=== PATIENT | female | born 1965 | race Caucasian/White ===

== ENCOUNTER 2022-10-24 09:43 | Outpatient (CLI) | payer BC ==
[2022-10-24 10:33] LABS: #Basophils 0.1 10x3/uL (0.0-0.2); #Monocytes 0.6 10x3/uL (0.0-1.1); #Neutrophils 5.2 10x3/uL (1.5-8.4); %Basophils 0.9 % (0.0-2.0); %Eosinophils 0.2 % (0.0-6.0); %Lymphocytes 26.7 % (18.0-47.0); %Neutrophils 64.8 % (40.0-75.0); Hemoglobin 13.3 g/dL (12.0-15.5); Mean Corpuscular HGB CONC 34.7 g/dL (32.0-36.0); Mean Corpuscular Hemoglobin 30.8 pg (27.0-33.0); Mean Corpuscular Volume 88.7 fl (81.6-98.3); Mean Platelet Volume 9.7 fl (7.4-10.4); Platelet Count 246 10x3/uL (150-450); Red Blood Cell (RBC) Count 4.32 10x6/uL (3.90-5.03)
[2022-10-24 10:40] LABS: INR-International Normal Ratio 0.9; Prothrombin Time 10.3 sec (9.5-12.1)
[2022-10-24 10:43] LABS: Anion Gap 12 mmol/L (10-20); BUN (Urea Nitrogen) 14 mg/dL (9.8-20.1); Calc. Creatinine Clearance 0 mL/min (70-130); Calcium 9.3 mg/dL (7.8-10.44); Carbon Dioxide 27 mmol/L (22-29); Chloride 105 mmol/L (98-107); Estimated GFR 90; Glucose 97 mg/dL (70-105); Potassium 3.7 mmol/L (3.5-5.1); Sodium 140 mmol/L (136-145)
== END 2022-10-24 09:44 | disposition home or self-care (01) ==
LOC: LABBT 09:43
PROVIDERS: ATTEND Orthopaedic Surgery
DX: Z01.818 Encounter for other preprocedural examination (principal); M16.12 Unilateral primary osteoarthritis, left hip
CPT/HCPCS: 80048; 85025; 85610; 87081; 93005; 93010

== ENCOUNTER 2022-10-25 05:48 | Inpatient (IN) | payer BC ==
[2022-10-25] MEDS ORDERED: Midazolam HCl 2 mg/2 ml Vial ONE ×2 (06:22→06:46)
[2022-10-25] MEDS ORDERED: Fentanyl 250 MCG/5 ML VIAL ONE (06:22)
[2022-10-25] MEDS ORDERED: Propofol 500 MG/50 ML VIAL ONE (06:31)
[2022-10-25] MEDS ORDERED: Vancomycin 1 GM/200 ML (FROZEN) BAG ONE (06:33)
[2022-10-25] MEDS ORDERED: Sodium Chloride 0.9% 0 ML ONE (06:33)
[2022-10-25] MEDS ORDERED: Tranexamic Acid 1,000 MG/10 ML VIAL ONE (06:33)
[2022-10-25] MEDS ORDERED: CEFAZOLIN 2 GM VIAL ONE ×2 (06:33→07:12)
[2022-10-25] MEDS ORDERED: Lidocaine 1% MPF 2 ML VIAL ONE (06:34)
[2022-10-25] MEDS ORDERED: Bupivacaine PF 0.5% 30 ML VIAL ONE ×2 (06:35→06:46)
[2022-10-25] MEDS ORDERED: Sodium Chloride 0.9% 100 ML ONE ×2 (06:42→07:12)
[2022-10-25] MEDS ORDERED: Fentanyl 100 MCG/2 ML VIAL ONE (06:46)
[2022-10-25] MEDS ORDERED: Promethazine HCl 25 MG/ML VIAL IM PRN ×2 (07:03→09:02)
[2022-10-25] MEDS ORDERED: Zolpidem Tartrate 5 MG TAB PO PRN (07:03)
[2022-10-25] MEDS ORDERED: diphenhydrAMINE 25 MG CAP PO PRN (07:03)
[2022-10-25] MEDS ORDERED: Fentanyl 100 MCG/2 ML VIAL SLOW IVP PRN ×2 (07:03)
[2022-10-25] MEDS ORDERED: Ondansetron PF 4 MG/2 ML Vial ONE ×2 (07:04→08:28)
[2022-10-25] MEDS ORDERED: PHENYLEPHRINE-NS 100 MCG/ML 10 ML SYRINGE ONE (07:04)
[2022-10-25] MEDS ORDERED: Non-Formulary Item 1 EACH (Risedronate Sodium [Actonel] 150 MG Tablet) PO SCH (07:15)
[2022-10-25 07:47] LABS: SARS-CoV-2 NAA Rapid Test Not Detected (NotDetected)
[2022-10-25] MEDS: Sodium Chloride 0.9% 1,000 ML IV SCH ×2 (09:00→20:16)
[2022-10-25] MEDS ORDERED: Non-Formulary Item 1 EACH (Mv-Mn/Folic Ac/Calcium/Vit K1 [Women's 50 Plus Multivit Tab] 1 PO SCH (09:00)
[2022-10-25] MEDS ORDERED: Ketorolac Tromethamine 30 MG/ML VIAL IVP PRN (09:02)
[2022-10-25] MEDS ORDERED: HYDROmorphone 2 MG/ML VIAL SLOW IVP PRN (09:02)
[2022-10-25] MEDS ORDERED: Promethazine HCl 25 MG/ML VIAL IVPB PRN (09:02)
[2022-10-25] MEDS ORDERED: Ondansetron HCl/PF 4 MG/2 ML Vial IVP PRN (09:02)
[2022-10-25] MEDS: Cholecalciferol 1,000 UNITS (25 MCG) TAB PO SCH (11:24)
[2022-10-25] MEDS: Zinc Sulfate 220 MG CAP PO SCH (11:24)
[2022-10-25] MEDS: Aspirin 81 mg Enteric Coated Tablet PO SCH ×2 (11:24→20:25)
[2022-10-25] MEDS: Estradiol 1 MG TAB PO SCH (11:24)
[2022-10-25] MEDS ORDERED: FENTANYL 50 MCG/ML 1 ML VIAL SLOW IVP PRN (11:45)
[2022-10-25] MEDS: FENTANYL 50 MCG/ML 1 ML VIAL SLOW IVP PRN ×3 (11:45→16:01)
[2022-10-25 12:06] VITALS: BMI 21.4
[2022-10-25] MEDS: Ondansetron PF 4 MG/2 ML Vial IVP PRN (12:53)
[2022-10-25] MEDS: HYDROcodone/Acetaminophen 10/325 mg Tablet PO PRN ×3 (13:19→22:29)
[2022-10-25] MEDS: CEFAZOLIN 2 GM in Sodium Chloride 0.9% 100 ML IVPB SCH ×2 (16:01→22:28)
[2022-10-25] MEDS: Acetaminophen 325 MG TAB PO PRN (20:29)
[2022-10-26] MEDS: Sodium Chloride 0.9% 1,000 ML IV SCH ×3 (02:07→23:15)
[2022-10-26] MEDS: HYDROcodone/Acetaminophen 10/325 mg Tablet PO PRN ×2 (02:27→06:34)
[2022-10-26 06:38] LABS: Hemoglobin 11.1 g/dL (12.0-16.0); Mean Corpuscular HGB CONC 34.4 g/dL (32.0-36.0); Mean Corpuscular Volume 93.3 fl (78.0-98.0); Mean Platelet Volume 7.8 fL (7.4-10.4); Platelet Count 176 10x3/uL (130-400); RBC Distribution Width 11.2 % (11.5-14.5); Red Blood Cell (RBC) Count 3.48 mill/uL (4.20-5.40); White Blood Cell (WBC) Count 10.6 10x3/uL (4.8-10.8)
[2022-10-26] MEDS: Zinc Sulfate 220 MG CAP PO SCH (08:26)
[2022-10-26] MEDS: Acetaminophen 325 MG TAB PO PRN ×3 (08:27→21:09)
[2022-10-26] MEDS: Cholecalciferol 1,000 UNITS (25 MCG) TAB PO SCH (08:27)
[2022-10-26] MEDS: Aspirin 81 mg Enteric Coated Tablet PO SCH ×2 (08:27→21:08)
[2022-10-26] MEDS: Multivitamin W/ Minerals 1 TAB PO SCH (08:27)
[2022-10-26] MEDS: Ferrous Gluconate 324 MG TAB PO SCH ×2 (08:27→17:36)
[2022-10-26] MEDS: Estradiol 1 MG TAB PO SCH (08:27)
[2022-10-26] MEDS: Senokot S 8.6-50 MG TAB PO SCH ×2 (08:27→21:09)
[2022-10-26] MEDS: Ondansetron PF 4 MG/2 ML Vial IVP PRN ×3 (08:31→20:03)
[2022-10-27] MEDS: Sodium Chloride 0.9% 1,000 ML IV SCH ×2 (07:16→16:01)
[2022-10-27] MEDS: Ondansetron PF 4 MG/2 ML Vial IVP PRN (08:20)
[2022-10-27] MEDS: Senokot S 8.6-50 MG TAB PO SCH ×2 (08:32→20:11)
[2022-10-27] MEDS: Multivitamin W/ Minerals 1 TAB PO SCH (08:32)
[2022-10-27] MEDS: Aspirin 81 mg Enteric Coated Tablet PO SCH ×2 (08:33→20:11)
[2022-10-27] MEDS: Estradiol 1 MG TAB PO SCH (08:33)
[2022-10-27] MEDS: Cholecalciferol 1,000 UNITS (25 MCG) TAB PO SCH (08:33)
[2022-10-27] MEDS: Zinc Sulfate 220 MG CAP PO SCH (08:33)
[2022-10-27] MEDS: Ferrous Gluconate 324 MG TAB PO SCH ×2 (08:33→16:21)
[2022-10-27] MEDS: traMADol HCl 50 MG TAB PO PRN ×3 (10:24→20:11)
[2022-10-27] MEDS: Ondansetron ODT 4 MG TAB PO PRN ×2 (14:13→20:11)
[2022-10-28] MEDS: Sodium Chloride 0.9% 1,000 ML IV SCH (05:15)
[2022-10-28 05:44] VITALS: TEMP 98.1
[2022-10-28] MEDS: Ferrous Gluconate 324 MG TAB PO SCH (09:46)
[2022-10-28] MEDS: Multivitamin W/ Minerals 1 TAB PO SCH (09:47)
[2022-10-28] MEDS: Zinc Sulfate 220 MG CAP PO SCH (09:47)
[2022-10-28] MEDS: Cholecalciferol 1,000 UNITS (25 MCG) TAB PO SCH (09:47)
[2022-10-28] MEDS: Estradiol 1 MG TAB PO SCH (09:47)
[2022-10-28] MEDS: Aspirin 81 mg Enteric Coated Tablet PO SCH (09:47)
[2022-10-28] MEDS: Senokot S 8.6-50 MG TAB PO SCH (09:47)
[2022-10-28] MEDS: Ondansetron ODT 4 MG TAB PO PRN (09:52)
[2022-10-28] MEDS: traMADol HCl 50 MG TAB PO PRN (09:52)
[2022-10-28 13:42] VITALS: BP 100/71
== END 2022-10-28 12:06 | disposition home or self-care (01) | DRG 470 ==
LOC: SDC 05:48 → SURG A 07:06 → OBSVTOIN 10-27 20:01
PROVIDERS: ADMIT Orthopaedic Surgery; ATTEND Orthopaedic Surgery
PROC: 0SRB039 Replacement of Left Hip Joint with Ceramic Synthetic Substitute, Cemented, Open Approach (ICD-10-PCS; principal; 2022-10-25)
DX: M16.12 Unilateral primary osteoarthritis, left hip (principal); R11.2 Nausea with vomiting, unspecified; Z20.822 Contact with and (suspected) exposure to COVID-19; Z90.710 Acquired absence of both cervix and uterus
CPT/HCPCS: 36415; 85027; 96365; 96375; 96376; C1776; G0378; J2250; J2405; J2704; J3010; J3370-JW; J3490; Q0162; S0020; U0002